=== PATIENT | female | born 1970 | race African-American/Black ===

== ENCOUNTER 2020-07-29 03:09 | Observation (INO) ==
[2020-07-29] MEDS ORDERED: PANTOPRAZOLE 40 MG VIAL IV STA (03:30)
[2020-07-29] MEDS ORDERED: SODIUM CHLORIDE 0.9% 500 ML IV STA (03:30)
[2020-07-29] MEDS ORDERED: ONDANSETRON 4 MG/2 ML VIAL IV STA (03:30)
[2020-07-29 03:42] LABS: Basophils % 0.1 % (0.0-0.8); Eosinophils % 0.1 % (0.00-10.9); Hematocrit 36.7 VOL% (35.7-47.0); Hemoglobin 11.7 GM/DL (12.0-16.0); Immature Granulocytes % 0.5 %; Immature Granulocytes Absolute 0.05 #; Lymphocytes # 1.1 10*3/uL (1.4-4.0); Lymphocytes % 11.7 % (21.3-54.2); Mean Corpuscular HGB Conc 31.9 GM/DL (32-36); Mean Corpuscular Volume 88.4 FL (87-102); Mean Platelet Volume 10.2 FL (9.6-12.0); Neutrophils % 82.6 % (38.7-73.9); Platelet Count 234 T/CUMM (130-400); Red Blood Count 4.15 MC/CUMM (3.8-5.5); Red Cell Distribution Width 15.2 % (9.3-17.3); White Blood Count 9.2 T/CUMM (4-12)
[2020-07-29 04:17] LABS: Alanine Aminotransferase 21 U/L (13-56); Albumin 3.3 G/DL (3.4-5.0); Alkaline Phosphatase 159 U/L (45-117); Amylase 109 U/L (25-115); Aspartate Amino Transferase 22 U/L (0-37); Bilirubin,Total < 0.39 MG/DL (0.2-1.0); Blood Urea Nitrogen 14 MG/DL (7-18); Calcium 8.8 MG/DL (8.5-10.1); Carbon Dioxide 30 MMOL/L (21-32); Estimated Glom Filtration Rate 174 ML/MIN; Glucose 102 MG/DL (74-106); Osmolality,Calculated 279.4 MOS/KG (273-304); Sodium 140 MMOL/L (136-145); Total Protein 8.1 G/DL (6.4-8.2)
[2020-07-29 05:19] LABS: Bilirubin,Urine Negative (Negative); Blood, Urine Negative (Negative); Glucose,Urine (UA) Negative (Negative); Hyaline Casts,Urine 1 /LPF (0-3); Ketones,Urine Negative (Negative); Mucus,Urine Few /LPF (Occasional); Nitrite,Urine Negative (Negative); Protein,Urine Negative; RBC,Urine 1 /HPF (0-4); Squamous Epithelial Cell,Urine Occasional /HPF (0-10); Urine Appearance CLEAR (Clear); Urine Color Yellow (Yellow); Urine Specific Gravity 1.026 (1.001-1.035); Urine Urobilinogen < 2.0 EU/DL (0.2-1.0); WBC,Urine 1 /HPF (0-6)
[2020-07-29] MEDS ORDERED: ACETAMINOPHEN 325 MG TABLET PO PRN (06:18)
[2020-07-29] MEDS ORDERED: DEXTROSE 50% 25 GM/50 ML VIAL IV PRN (06:18)
[2020-07-29] MEDS ORDERED: GLUCAGON 1 MG VIAL IM PRN (06:18)
[2020-07-29] MEDS ORDERED: hydrALAZINE 20 MG/1 ML VIAL IV PRN (06:18)
[2020-07-29] MEDS ORDERED: DOCUSATE SODIUM 100 MG CAPSULE PO PRN (06:18)
[2020-07-29] MEDS ORDERED: METHOTREXATE 2.5 MG TABLET PO SCH (06:30)
[2020-07-29] MEDS: ENOXAPARIN 40 MG/0.4 ML SYRINGE SUBCUT SCH (06:39)
[2020-07-29] MEDS ORDERED: BACLOFEN 10 MG TABLET PO SCH (09:00)
[2020-07-29] MEDS: hydroCHLOROthiazide 12.5 MG CAPSULE PO SCH (09:11)
[2020-07-29] MEDS: PANTOPRAZOLE 40 MG VIAL IV SCH (09:15)
[2020-07-29] MEDS: predniSONE 5 MG TABLET PO SCH (09:15)
[2020-07-29] MEDS: amLODIPine 5 MG TABLET PO SCH (09:15)
[2020-07-29] MEDS: carBAMazepine 200 MG TABLET PO SCH ×2 (09:16→20:31)
[2020-07-29] MEDS: FOLIC ACID 1 MG TABLET PO SCH (09:16)
[2020-07-29] MEDS: SODIUM CHLORIDE 0.9% 1,000 ML IV SCH ×2 (09:16→20:30)
[2020-07-29] MEDS: MORPHINE 4 MG/1 ML VIAL IV PRN (13:44)
[2020-07-29] MEDS: BACLOFEN 10 MG TABLET PO SCH ×2 (16:57→20:31)
[2020-07-29] MEDS: ONDANSETRON 4 MG/2 ML VIAL IV PRN (20:39)
[2020-07-30] MEDS: SODIUM CHLORIDE 0.9% 1,000 ML IV SCH (03:50)
[2020-07-30] MEDS: ENOXAPARIN 40 MG/0.4 ML SYRINGE SUBCUT SCH (05:56)
[2020-07-30 06:24] LABS: Basophils % 0.1 % (0.0-0.8); Eosinophils # 0.1 10*3/uL (0.0-0.87); Eosinophils % 1.2 % (0.00-10.9); Hematocrit 31.1 VOL% (35.7-47.0); Hemoglobin 10.1 GM/DL (12.0-16.0); Immature Granulocytes % 0.6 %; Immature Granulocytes Absolute 0.04 #; Lymphocytes # 1.3 10*3/uL (1.4-4.0); Lymphocytes % 18.9 % (21.3-54.2); Mean Corpuscular HGB Conc 32.5 GM/DL (32-36); Mean Corpuscular Volume 88.9 FL (87-102); Mean Platelet Volume 10.4 FL (9.6-12.0); Monocytes % 7.2 % (1.7-12.7); Platelet Count 194 T/CUMM (130-400); Red Cell Distribution Width 15.6 % (9.3-17.3); White Blood Count 6.8 T/CUMM (4-12)
[2020-07-30 06:55] LABS: Albumin 2.7 G/DL (3.4-5.0); Bilirubin,Total 0.4 MG/DL (0.2-1.0); Calcium 8.3 MG/DL (8.5-10.1); Osmolality,Calculated 271.7 MOS/KG (273-304); Potassium 3.3 MMOL/L (3.5-5.1)
[2020-07-30] MEDS: amLODIPine 5 MG TABLET PO SCH (08:32)
[2020-07-30] MEDS: PANTOPRAZOLE 40 MG VIAL IV SCH (08:32)
[2020-07-30] MEDS: FOLIC ACID 1 MG TABLET PO SCH (08:32)
[2020-07-30] MEDS: hydroCHLOROthiazide 12.5 MG CAPSULE PO SCH (08:32)
[2020-07-30] MEDS: predniSONE 5 MG TABLET PO SCH (08:32)
[2020-07-30] MEDS: BACLOFEN 10 MG TABLET PO SCH (08:32)
[2020-07-30] MEDS: carBAMazepine 200 MG TABLET PO SCH (08:32)
[2020-07-30] MEDS: ONDANSETRON 4 MG/2 ML VIAL IV PRN (08:33)
[2020-07-30] MEDS: MORPHINE 4 MG/1 ML VIAL IV PRN (08:33)
[2020-07-30 16:05] VITALS: BP 117/78
== END 2020-07-30 16:19 | disposition home or self-care (01) ==
LOC: N.EDINP 03:09 → N.ED 03:09 → N.4E 07:24 → UNDODISOB 08:05
PROVIDERS: ADMIT Internal Medicine; ATTEND Internal Medicine

== ENCOUNTER 2020-09-11 06:16 | Inpatient (IN) ==
[2020-09-05 12:25] LABS: Basophils % 0.4 % (0.0-0.8); Hematocrit 36.2 VOL% (35.7-47.0); Hemoglobin 11.7 GM/DL (12.0-16.0); Immature Granulocytes % 0.4 %; Immature Granulocytes Absolute 0.03 #; Lymphocytes # 1.2 10*3/uL (1.4-4.0); Lymphocytes % 15.5 % (21.3-54.2); Mean Corpuscular HGB Conc 32.3 GM/DL (32-36); Mean Corpuscular Volume 86.8 FL (87-102); Mean Platelet Volume 10.4 FL (9.6-12.0); Monocytes % 3.8 % (1.7-12.7); Neutrophils % 79.9 % (38.7-73.9); Platelet Count 244 T/CUMM (130-400); Red Blood Count 4.17 MC/CUMM (3.8-5.5); Red Cell Distribution Width 15.1 % (9.3-17.3); White Blood Count 7.7 T/CUMM (4-12)
[2020-09-05 12:37] LABS: Calcium 9.4 MG/DL (8.5-10.1); Osmolality,Calculated 281.3 MOS/KG (273-304); Potassium 4.2 MMOL/L (3.5-5.1)
[~2020-09-11 06:16] MED LIST: ceFAZolin 2,000 MG/50 ML DUPLEX IV ONE
[2020-09-11] MEDS: LACTATED RINGERS 1,000 ML IV SCH ×3 (07:01→17:05)
[2020-09-11] MEDS ORDERED: ISOSULFAN BLUE 5 ML VIAL SUBCUT ONE (07:56)
[2020-09-11] MEDS ORDERED: fentaNYL 100 MCG/2 ML VIAL ONE ×2 (08:38→09:41)
[2020-09-11] MEDS ORDERED: LIDOCAINE 2% 5 ML VIAL ONE (08:38)
[2020-09-11] MEDS ORDERED: MIDAZOLAM 2 MG/2 ML VIAL ONE (08:38)
[2020-09-11] MEDS ORDERED: ROCURONIUM 50 MG/5 ML VIAL IV ONE (08:38)
[2020-09-11] MEDS ORDERED: propofoL 200 MG/20 ML VIAL IV ONE (08:38)
[2020-09-11] MEDS ORDERED: methylPREDNISolone SOD SUC 125 MG/2 ML VIAL ONE (08:39)
[2020-09-11] MEDS ORDERED: ONDANSETRON 4 MG/2 ML VIAL IV PRN ×2 (12:21→12:42)
[2020-09-11] MEDS ORDERED: ACETAMINOPHEN 325 MG TABLET PO PRN (12:21)
[2020-09-11] MEDS ORDERED: HYDROmorphone 2 MG/1 ML VIAL IV PRN (12:42)
[2020-09-11] MEDS: HYDROmorphone 2 MG/1 ML VIAL IV PRN (21:29)
[2020-09-12] MEDS: HYDROmorphone 2 MG/1 ML VIAL IV PRN (04:06)
[2020-09-12 06:14] LABS: Basophils % 0.2 % (0.0-0.8); Hemoglobin 9.2 GM/DL (12.0-16.0); Immature Granulocytes % 0.5 %; Immature Granulocytes Absolute 0.06 #; Lymphocytes # 1.7 10*3/uL (1.4-4.0); Lymphocytes % 14.6 % (21.3-54.2); Mean Corpuscular HGB Conc 31.7 GM/DL (32-36); Mean Corpuscular Volume 87.1 FL (87-102); Mean Platelet Volume 10.6 FL (9.6-12.0); Monocytes % 7.5 % (1.7-12.7); Neutrophils % 77.2 % (38.7-73.9); Platelet Count 205 T/CUMM (130-400); Red Blood Count 3.33 MC/CUMM (3.8-5.5); Red Cell Distribution Width 14.9 % (9.3-17.3); White Blood Count 11.7 T/CUMM (4-12)
[2020-09-12 06:46] LABS: Calcium 8.8 MG/DL (8.5-10.1); Osmolality,Calculated 284.3 MOS/KG (273-304); Potassium 4.2 MMOL/L (3.5-5.1)
[2020-09-12] MEDS: BACLOFEN 10 MG TABLET PO SCH ×3 (10:10→21:30)
[2020-09-12] MEDS: carBAMazepine 200 MG TABLET PO SCH ×2 (10:10→21:30)
[2020-09-12] MEDS: hydroCHLOROthiazide 12.5 MG CAPSULE PO SCH (10:10)
[2020-09-12] MEDS: PANTOPRAZOLE 40 MG TABLET PO SCH (10:11)
[2020-09-12] MEDS: predniSONE 5 MG TABLET PO SCH (10:11)
[2020-09-12] MEDS: LACTATED RINGERS 1,000 ML IV SCH (10:11)
[2020-09-13 05:18] LABS: Hematocrit 25.7 VOL% (35.7-47.0); Hemoglobin 8.2 GM/DL (12.0-16.0)
[2020-09-13] MEDS ORDERED: TUBERCULIN SKIN TEST 0.1 ML SYRINGE INTRADERM ONE (08:42)
[2020-09-13] MEDS: carBAMazepine 200 MG TABLET PO SCH ×2 (08:45→21:14)
[2020-09-13] MEDS: BACLOFEN 10 MG TABLET PO SCH ×3 (08:45→21:14)
[2020-09-13] MEDS: PANTOPRAZOLE 40 MG TABLET PO SCH (08:45)
[2020-09-13] MEDS: predniSONE 5 MG TABLET PO SCH (08:45)
[2020-09-13] MEDS: hydroCHLOROthiazide 12.5 MG CAPSULE PO SCH (08:45)
[2020-09-13] MEDS: HYDROmorphone 2 MG/1 ML VIAL IV PRN (21:14)
[2020-09-14 08:18] VITALS: BP 100/61
[2020-09-14] MEDS: predniSONE 5 MG TABLET PO SCH (09:47)
[2020-09-14] MEDS: PANTOPRAZOLE 40 MG TABLET PO SCH (09:47)
[2020-09-14] MEDS: hydroCHLOROthiazide 12.5 MG CAPSULE PO SCH (09:47)
[2020-09-14] MEDS: carBAMazepine 200 MG TABLET PO SCH (09:47)
[2020-09-14] MEDS: BACLOFEN 10 MG TABLET PO SCH (09:47)
== END 2020-09-14 11:35 | DRG 580 ==
LOC: N.OR 06:16 → N.SDSINP 06:18 → EDSTATUS 08:30 → N.SDSINP 12:21 → N.4E 13:40
PROVIDERS: ADMIT Student in an Organized Health Care Education/Training Program; ATTEND Student in an Organized Health Care Education/Training Program